=== PATIENT | male | born 1955 | race Caucasian/White ===

== ENCOUNTER 2016-11-11 12:39 | Emergency (ER) | payer OTHER ==
[2016-11-11 12:57] VITALS: BP 178/97
--- NOTE | 2016-11-11 13:11 | ERNOTE ---
Integumentary HPI - Narrative Date of Service: 11/11/16 - General Presenting Symptoms: insect bite - wasp sting Time Seen by Provider: 11/11/16 13:05 Source: patient Exam Limitations: no limitations - Immun/Allergies/Home Medications Immunizations: IMMUNIZATION HX History of Influenza Vaccine Yes Allergies/Adverse Reactions: Allergies Allergy/AdvReac Type Severity Reaction Status Date / Time acetaminophen [From Tylenol] AdvReac Mild Other Verified 11/11/16 12:58 Home Medications: HOME MEDICATIONS Bystolic 11/11/16 [Last Taken Unknown] Pantoprazole Sodium 11/11/16 [Last Taken Unknown] Xanax 11/11/16 [Last Taken Unknown] predniSONE [Prednisone] 2 tab PO DAILY #10 tab 11/11/16 [Last Taken Unknown] - Pain Pain Score: 0 - History of Present Illness Narrative: 61yo, M, presents to ER for wasp sting to L. forehead. Notes he opened his garage door and a wasp came out of a wasp nest and sting his L. forehead. He took Benadryl at home, but continued to have worsened swelling to his L. eyelids. Denies any difficulty breathing. Date (Duration): 11/11/16 Time (Timing): 10:00 Location: Reports: other - forehead Quality: Reports: itching Severity: moderate Exposure: Reports: bee/wasp sting Modifying Factors - (Improves): Reports: nothing Associated Symptoms: Reports: edema - L. eye. Denies: rash, hives, fever Review of Systems - Review of Systems Constitutional: Absent: fever, chills, fatigue EYE: Present: other - L. eyelid swelling. Absent: eye pain Respiratory: Absent: shortness of breath, cough, wheezing Cardiology: Absent: chest pain, edema Gastrointestinal/Abdominal: Absent: nausea, vomiting Skin: Absent: rash - Patient's Past Medical History Patient History - Medical: No pertinent hx Patient History - Cardiac/Respiratory: Hypertension Patient History - Cancer: No Hx of Cancer Patient History - Surgical Procedures: No surgical history Patient History - Other: None - Social History Living Situations: home Psych History: Hx of Anxiety Smoking Status: Current every day smoker Have you smoked in the past 12 months: Yes Alcohol Use: occasionally Drug Use: none - Immunizations History of Influenza Vaccine: Yes Physical Exam - Physical Exam General Appearance: Present: wd/wn, alert, no apparent distress Head Exam: Present: swelling - L. upper and lower eyelid, no erythema. Absent: ecchymosis, tenderness Eye Exam: PERRL: left Ears, Nose, Throat: Present: normal pharynx, other - no swelling of tongue, lips or pharynx, no voice changes Neck: Present: normal inspection, nontender Respiratory: Present: no respiratory distress, normal breath sounds, lungs clear. Absent: rales, rhonchi, wheezing Cardiovascular/Chest: Present: regular rate, rhythm, no murmur Skin Exam: Present: normal color, warm/dry, other - insect bite L. forehead, no erythema, mild L. forehead swelling ED Progress - Vital Signs Vital Signs: Vital Signs 11/11/16 12:55 Temperature 37.0 C Pulse Rate 69 Respiratory 18 Rate Blood Pressure 178/97 O2 Sat by Pulse 93 Oximetry - Progress/Reassessment Chief Complaint: Insect Bite Departure Clinical Impression: Wasp sting Qualifiers: Encounter type: initial encounter Injury intent: accidental or unintentional Qualified Code(s): T63.461A - Toxic effect of venom of wasps, accidental ( unintentional), initial encounter - Departure Disposition: Home self-care Condition: Fair Instructions: Bee, Wasp, or Hornet Sting Additional Instructions: Apply cool compresses to help with swelling Continue to use Benadryl, take as directed for the next few days If you develop increased swelling or redness after 3 to 5 days seek re- evaluation as this can be a sign of infection Seek care immediately for any difficulty breathing, swelling of lips, tongue or throat Prescriptions: predniSONE [Prednisone] 2 tab PO DAILY #10 tab
--- OUTSIDE RECORDS SUMMARY | 2016-11-11 13:11 | XMS REPORT | CCD ---
:1955 Author Organization [facility] Care Team Providers Name Role Phone Henri Blevins DO Primary Care Provider [phone] Allergies, Adverse Reactions, Alerts Substance Reaction Status No known allergies Active Problem List Condition Effective Dates Status Anxiety Active Elevated Liver Function Tests Active Esophageal reflux (GERD) Active Hepatitis C Active Hyperlipidemia, Group A Active Hypertension, Benign Active Medications Medication Instructions Start Date End Date Status Viagra 100 mg oral tablet See Instructions, Instructions: 1 tab(s) p.o. 1 hour before sexual activity, # 2 tab(s), 5 Refill(s), Type: Soft Stop, Pharmacy : [facility] 10/25/2011 Ordered 1 tab(s) p.o. 1 hour before sexual activity hydrochlorothiazide-triamte 1 cap(s), PO, Daily, # 30 09/10/2011 03/08/2012 Ordered cornelia 25 mg-37.5 mg oral cap(s), 5 Refill(s), Type: capsule Maintenance, Pharmacy: [facility] Nexium 40 mg oral delayed 1 cap(s) ( 40 mg ), PO, Daily, Instructions: Faxed to [facility] [phone], # 90 cap(s), 3 Refill(s), Type: Maintenance Ordered release capsule Faxed to [facility] [phone] Viagra 100 mg oral tablet 1 tab(s) ( 100 mg ), po, 10/05/2010 Ordered daily, # 10 tab(s), 3 Refill(s), Type: Maintenance ibuprofen 200 mg oral 2 cap(s), PO, q4hr, PRN: for 11/05/2009 Ordered capsule pain, # 120 cap(s), 0 Refill(s) Xanax 0.5 mg oral tablet 2 tab(s) ( 1 mg ), PO, 10/18/2011 Ordered Daily, PRN: | for anxiety, # 60 tab(s), 4 Refill(s), Type: Maintenance, called to pharmacy (Rx) Vital Signs Most recent to oldest [Reference Range]: 1 2 Weight 190.00 lb 191.00 lb (10/05/2010 09:00:00) (12/04/2009 14:39:00) Systolic Blood Pressure [90-140 mmHg] 138 mmHg 140 mmHg (10/05/2010 09:00:00) (12/04/2009 14:39:00) Diastolic Blood Pressure [60-90 mmHg] 90 mmHg 96 mmHg (10/05/2010 09:00:00) *HI* (12/04/2009 14:39:00) Mean Arterial Pressure 106 mmHg 111 mmHg (10/05/2010 09:00:00) (12/04/2009 14:39:00) Peripheral Pulse Rate [60-100 bpm] 72 bpm 72 bpm (10/05/2010 09:00:00) (12/04/2009 14:39:00) Procedures Procedures Date Related Diagnosis Laser surgery"
[2016-11-11] MEDS ORDERED: METHYLPREDNISOLONE SOD SUCC/PF 125 MG/2 ML VIAL IM SCH (13:15)
[2016-11-11] MEDS ORDERED: METHYLPREDNISOLONE SOD SUCC/PF 125 MG/2 ML VIAL ONE (13:17)
== END 2016-11-11 13:33 | disposition home or self-care (01) ==
LOC: ER 12:39
DX: T63.461A Toxic effect of venom of wasps, accidental (unintentional), initial encounter (principal); Z72.0 Tobacco use